=== PATIENT | male | born 2000 | race Caucasian/White ===

== ENCOUNTER 2021-09-27 10:31 | Outpatient (REF) | payer MEDICAID, SELFPAY ==
[2021-09-27 14:28] LABS: Abs Immature Grans 0.04 10^3/uL (0.0-0.06); Absolute Basophil Count 0.06 10^3/uL (0.0-0.2); Absolute Eosinophil Count 0.16 10^3/uL (0.0-0.7); Absolute Lymphocyte Count 2.63 10^3/uL (1.2-3.4); Absolute Monocyte Count 0.39 10^3/uL (0.1-0.8); Absolute Neutrophil Count 5.21 10^3/uL (1.2-6.7); Basophils % 0.7; Eosinophils % 1.9; HCT 39.1 % (40.0-50.0); HGB 13.2 g/dL (13.5-17.5); Immature Grans % 0.5; MCH 29.1 pg (27.0-33.0); MCHC 33.8 % (32.0-36.0); MCV 86 fL (80-95); MPV 9.9 fL (8.0-11.0); Monocytes % 4.6; Neutrophils % 61.3; Platelet Count 406 10^3/uL (130-400); RBC 4.54 10^6/uL (4.36-5.78); RDW 11.9 % (11.8-14.1); RDW-SD 37.5 fL; WBC 8.49 10^3/uL (4.4-10.8)
[2021-09-27 14:53] LABS: ALT 24 U/L (16-63); AST 14 U/L (15-37); Albumin 3.7 g/dL (3.4-5.0); Alkaline Phosphatase 80 U/L (46-116); Anion Gap 12.5 mmol/L (3-11); BUN 11 mg/dL (7-18); Bilirubin, Total 0.2 mg/dL (0.2-1.0); CO2 24.5 mmol/L (21.0-32.0); CREATININE 0.9 mg/dL (0.70-1.30); Calcium 8.7 mg/dL (8.5-10.1); Calculated LDL 165 mg/dL (<100); Chloride 101 mmol/L (98-107); Cholesterol 245 mg/dL (<200); Glucose 123 mg/dL (74-106); HDL Cholesterol 35 mg/dL (40-60); Potassium 3.7 mmol/L (3.5-5.1); Sodium 138 mmol/L (136-145); Total Protein 7.7 g/dL (6.4-8.2); Triglyceride 227 mg/dL (<150)
== END 2021-09-27 10:32 | disposition home or self-care (01) ==
LOC: NCHCN 10:31
PROVIDERS: Visit Provider Nurse Practitioner Family
DX: F64.0 Transsexualism (principal); E55.9 Vitamin D deficiency, unspecified; F41.8 Other specified anxiety disorders; F90.2 Attention-deficit hyperactivity disorder, combined type; Z00.00 Encounter for general adult medical examination without abnormal findings; E66.9 Obesity, unspecified; Z13.220 Encounter for screening for lipoid disorders
CPT/HCPCS: 80053; 80061; 82306; 84443; 85025

== ENCOUNTER 2021-12-18 15:49 | Outpatient (REF) | payer MEDICAID, SELFPAY ==
[2021-12-18 18:53] LABS: Abs Immature Grans 0.05 10^3/uL (0.0-0.06); Absolute Basophil Count 0.06 10^3/uL (0.0-0.2); Absolute Eosinophil Count 0.17 10^3/uL (0.0-0.7); Absolute Lymphocyte Count 2.48 10^3/uL (1.2-3.4); Absolute Monocyte Count 0.66 10^3/uL (0.1-0.8); Absolute Neutrophil Count 6.87 10^3/uL (1.2-6.7); Basophils % 0.6; Eosinophils % 1.7; HCT 49.5 % (40.0-50.0); HGB 15.9 g/dL (13.5-17.5); Immature Grans % 0.5; Lymphocytes % 24.1; MCH 26.5 pg (27.0-33.0); MCHC 32.1 % (32.0-36.0); MCV 83 fL (80-95); MPV 9.9 fL (8.0-11.0); Monocytes % 6.4; Neutrophils % 66.7; Platelet Count 432 10^3/uL (130-400); RDW 12.8 % (11.8-14.1); RDW-SD 38.4 fL; WBC 10.29 10^3/uL (4.4-10.8)
[2021-12-18 19:15] LABS: Anion Gap 4.9 mmol/L (3-11); BUN 9 mg/dL (7-18); CO2 26.1 mmol/L (21.0-32.0); CREATININE 0.9 mg/dL (0.70-1.30); Calcium 9.8 mg/dL (8.5-10.1); Chloride 102 mmol/L (98-107); Estimated GFR 124.61 (mL/min/1.73m2); Glucose 115 mg/dL (74-106); Potassium 3.9 mmol/L (3.5-5.1); Sodium 133 mmol/L (136-145)
[2021-12-26 14:02] LABS: Testosterone, Free 27.8 ng/dL (5.25-20.7); Testosterone, Total 575 ng/dL (240-950)
== END 2021-12-18 15:50 | disposition home or self-care (01) ==
LOC: NCHCN 15:49
PROVIDERS: Visit Provider Nurse Practitioner Family
DX: F64.0 Transsexualism (principal); F90.2 Attention-deficit hyperactivity disorder, combined type; Z76.0 Encounter for issue of repeat prescription
CPT/HCPCS: 80048; 84402; 84403; 85025

== ENCOUNTER 2022-05-01 03:10 | Outpatient (CLI) | payer MEDICAID, SELFPAY ==
[2022-05-01 12:14] LABS: HCT 49.9 % (40.0-50.0); HGB 16.6 g/dL (13.5-17.5)
[2022-05-01 13:08] LABS: ALT 43 U/L (16-63); AST 23 U/L (15-37); Alkaline Phosphatase 76 U/L (46-116); Bilirubin, Direct 0.1 mg/dL (0.0-0.2); Bilirubin, Total 0.5 mg/dL (0.2-1.0); Total Protein 8.3 g/dL (6.4-8.2)
[2022-05-01 13:31] LABS: Calculated LDL 191 mg/dL (<100); Cholesterol 280 mg/dL (<200); HDL Cholesterol 45 mg/dL (40-60); Triglyceride 221 mg/dL (<150)
[2022-05-06 13:27] LABS: Testosterone, Total 233 ng/dL (240-950)
== END 2022-05-01 03:11 | disposition home or self-care (01) ==
PROVIDERS: Referring Provider Internal Medicine Endocrinology, Diabetes & Metabolism; Visit Provider Internal Medicine Endocrinology, Diabetes & Metabolism
DX: Z78.9 Other specified health status (principal)
CPT/HCPCS: 36415; 80061; 80076; 84403; 85014; 85018

== ENCOUNTER 2022-08-05 02:34 | Outpatient (CLI) | payer MEDICAID, SELFPAY ==
--- NOTE | 2022-08-05 13:00 | NS.NUTBLAN_ITS ---
Gaston was referred for weight management education. Trans male 5'1 176 lbs BMI 33 Labs: elevated chol/LDL/triglycerides Meds: testosterone, vyvance Diet Recall: B: smoothie, L: omelete and fruit, D: salad, rice, hummus Exercise: none. 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 Gaston has been successful loosing about 25 lbs in last 3 months by following a lower calorie diet and tracking macronutrients on phone taniya. Currently following 1200 kcal, 150 g carb, 60 g protein, and 40 g fat. In past reports he often binged ate or restricted. Since starting vyvance, has stopped binging and using phone taniya to remind him to meet nutrient needs. Has not been restricting his meal intake. Gaston is motivated to lose another 50 lbs as is having a surgery in September this year. Goal for Gaston is to weigh 150 lbs at time of surgery. Encouraged Gaston to continue with current meal plan and to add in more exercise- goal is to walk 10 miles per week. No follow up scheduled at this time.
== END 2022-08-05 02:35 | disposition home or self-care (01) ==
PROVIDERS: PCP Nurse Practitioner Family; Visit Provider Dietitian, Registered
DX: E66.8 Other obesity (principal); Z68.33 Body mass index [BMI] 33.0-33.9, adult; Z71.3 Dietary counseling and surveillance
CPT/HCPCS: 97802

== ENCOUNTER 2023-02-14 12:46 | Outpatient (CLI) | payer MEDICAID, SELFPAY ==
[2023-02-14 11:55] LABS: HCT 49.5 % (36.0-46.0); HGB 16.5 g/dL (11.2-15.7)
[2023-02-14 12:38] LABS: Calculated LDL 155 mg/dL (<100); Cholesterol 259 mg/dL (<200); HDL Cholesterol 43 mg/dL (40-60); Triglyceride 309 mg/dL (<150)
[2023-02-14 12:47] LABS: Vitamin D 25 Total 16.9 ng/mL (30-100)
[2023-02-14 19:48] LABS: Estradiol 46 pg/mL (See Note)
[2023-02-20 02:24] LABS: Testosterone, Total 207 ng/dL (8-60)
== END 2023-02-14 12:47 | disposition home or self-care (01) ==
LOC: LBO 12:46
PROVIDERS: PCP Nurse Practitioner Family; Visit Provider Internal Medicine Endocrinology, Diabetes & Metabolism
DX: E78.1 Pure hyperglyceridemia (principal); E55.9 Vitamin D deficiency, unspecified; Z78.9 Other specified health status
CPT/HCPCS: 36415; 80061; 82306; 84403; 82670; 85014; 85018

== ENCOUNTER 2023-03-27 13:46 | Outpatient (REF) | payer MEDICAID, SELFPAY ==
--- NOTE | 2023-03-27 13:30 | PAPFT_PTH ---
PATIENT: Gaston Murillo LOC: [facility] U#:[id number] AGE/SX: 23/F ROOM: RE03/27/[address]: Shahida Kelly MD : 2000 BED: DIS: 03/27/2023 SPEC #: [id number] RECD: 03/27/23 18:07 STATUS: VARUN RETran #: [id number] BRENT: 03/27/23 13:[address]: Shahida Kelly DEPT: [facility] Cytology RECD BY: Mamie Albarran ENTERED: 03/27/23 18:07 SP TYPE: PAPFT MATTHEW DR: SHAILA FLETCHER NP Tissues: 1 - CX/ENDOCX FOR PAP SMEARS Procedures: PAP THIN PREP/UVM Screening Comments: [id number]
== END 2023-03-27 13:47 | disposition home or self-care (01) ==
LOC: LBN 13:46
PROVIDERS: PCP Nurse Practitioner Family; Visit Provider Obstetrics & Gynecology
DX: Z12.4 Encounter for screening for malignant neoplasm of cervix (principal)
CPT/HCPCS: 88142

== ENCOUNTER 2023-06-25 12:15 | Outpatient (REF) | payer MEDICAID, SELFPAY ==
[2023-06-25 15:19] LABS: HGB 17.6 g/dL (11.2-15.7); MCH 29.5 pg (27.0-33.0); MCHC 34.5 % (32.0-36.0); MCV 85 fL (80-95); Platelet Count 368 10^3/uL (130-400); RBC 5.97 10^6/uL (3.93-5.22); RDW 12.2 % (11.7-14.6); RDW-SD 38.2 fL; WBC 8.22 10^3/uL (4.4-10.8)
[2023-06-25 16:21] LABS: Cholesterol 264 mg/dL (<200); HDL Cholesterol 38 mg/dL (40-60); Triglyceride 497 mg/dL (<150)
[2023-06-25 16:33] LABS: LDL CHOLESTEROL 166 mg/dL (<100)
[2023-07-01 16:53] LABS: Testosterone, Total 672 ng/dL (8-60)
== END 2023-06-25 12:16 | disposition home or self-care (01) ==
LOC: NCHCN 12:15
PROVIDERS: PCP Nurse Practitioner Family; Referring Provider Nurse Practitioner Family; Visit Provider Nurse Practitioner Family
DX: E78.5 Hyperlipidemia, unspecified (principal); R53.83 Other fatigue; E55.9 Vitamin D deficiency, unspecified; F64.0 Transsexualism
CPT/HCPCS: 80061; 82306; 83721; 84403; 85027; 84443

== ENCOUNTER 2023-09-03 19:40 | Emergency (ER) | payer MEDICAID, SELFPAY ==
--- NOTE | 2023-09-03 19:30 | RT.EKG_ITS ---
APPROVED REPORT Exam: Resting ECG Reason for Exam: SOB Patient Location: E HR:99 bpm ECG Measurements Heart Rate 99 AXIS NE 154 P 73 QRSd 95 QRS 119 QT 338 T 61 QTc 435 Conclusion Sinus rhythm...normal P axis, V-rate 60- 99 Right axis deviation...QRS axis (111,269)
[2023-09-03 19:43] VITALS: BP 138/74; PULSE 90; RESP 18; TEMP 36.3; O2SAT 100
--- NOTE | 2023-09-03 19:57 | W.ED.GENAD ---
Discharge Plan Disposition Patient Disposition: Home Condition: Stable Discharge Details Clinical Impression: Anxiety, Dyspnea, Chest tightness Primary Care Provider: SHAILA FLETCHER ED Provider: Hanh Rowland Home Meds and New Rx's Prescriptions: Continued testosterone 1 % (25 mg/2.5gram) gel in packet 1 packet transdermal DAILY lisdexamfetamine [Vyvanse] 40 mg capsule 30 mg PO DAILY cholecalciferol (vitamin D3) 25 mcg (1,000 unit) capsule 25 mcg PO DAILY famotidine 40 mg tablet 40 mg PO DAILY Patient Comments: TAKE ONE TABLET BY MOUTH EVERY DAY Discharge Instructions Instructions: Dyspnea (ED), Anxiety (ED) Additional Instructions: No evidence for blood clot in your lungs, or pneumonia or heart attack on your labs today. I do suspect this is a combination of anxiety and component of acid reflux. Follow up with primary care provider in 3-5 days. Return to ED sooner if any worsening or concerns. Please take an [id number] antacid. Referrals: SHAILA FLETCHER, [employer]IV[employer]IES PROFESSOR [Primary Care Provider] - 3 days HPI General Mode of arrival: ambulatory. Date/Time Provider Initiated Documentation: 09/03/23 19:55. Limitations to Documentation: no limitations. Information obtained by: patient, RN notes reviewed and old records reviewed. HPI Narrative: 23-year-old female transitioning to male presents to the ER with chest tightness and shortness of breath that has been ongoing for the last 9 months worse since April. Reports that he was seen at urgent care and was referred here for further workup to rule out PE. Patient reports having history of GERD hyperlipidemia depression migraines and anemia. Related Data Home Medications Medication Instructions Recorded Confirmed cholecalciferol (vitamin D3) 25 25 mcg PO DAILY 03/27/23 09/03/23 mcg (1,000 unit) capsule lisdexamfetamine 40 mg capsule 30 mg PO DAILY 03/27/23 09/03/23 (Vyvanse) testosterone 1 % (25 mg/2.5 gram) 1 packet transdermal DAILY 03/27/23 09/03/23 transdermal gel packet famotidine 40 mg tablet 40 mg PO DAILY 09/03/23 09/03/23 Allergies Allergy/AdvReac Type Severity Reaction Status Date / Time No Known Allergies Allergy Verified 09/03/23 19:48 General Stated Complaint: SOB SOFIA: 3 Review of Systems All systems reviewed & are unremarkable except as noted in HPI and below Cardiovascular Cardiovascular: Reports chest pain, Reports lightheadedness, Reports dyspnea and Reports dyspnea on exertion Respiratory Respiratory: Reports dyspnea and Reports dyspnea on exertion Gastrointestinal Gastrointestinal: Reports dyspepsia, Reports heartburn, Denies diarrhea, Reports nausea and Denies vomiting Exam Narrative Exam Narrative: Constitutional: Alert and oriented x3. Appears stated age. Normal body habitus. Head: Normocephalic, no trauma. Eyes: Pupils PERRL, Red reflex noted, EOM's intact. Eyelids symmetrical without lesions, discharge, or swelling. ENT: Bilateral TM's WNL, External ear normal to inspection, no mastoid TTP, swelling, or erythema, Nasal turbinates WNL, no nasal discharge. Normal dentition, Posterior pharynx WNL, no exudate. Chest: RRR, Normal S1, S2, distal pulses intact. Resp: Lungs clear to auscultation bilaterally, no wheezes, rales, or rhonchi. Abdomen: Soft, non-distended, Normoactive bowel sounds all 4 quads. Musculoskeletal: Normal gait, Moves all 4 extremities without difficulty. Skin: No suspicious rashes or lesions. Capillary refill less than 2 sec. Neurologic: Cranial nerves II-XII intact. Alert and oriented x 3. Motor: No deficits noted. Sensory: Intact bilaterally all 4 extremities. Hematologic/Lymphatic: No ecchymosis, no lymphadenopathy. Course Vital Signs Vital signs: Vital Signs Temperature 36.3 C L 09/03/23 19:43 Pulse 90 09/03/23 19:43 Respiratory Rate 18 09/03/23 19:43 Blood Pressure 138/74 09/03/23 19:43 Pulse Oximetry 100 09/03/23 19:43 Temperature 36.3 C L 09/03/23 19:43 Temperature Source Temporal Artery Scan 09/03/23 19:43 Pulse 90 09/03/23 19:43 Respiratory Rate 18 09/03/23 19:43 Respiratory Effort Normal 09/03/23 19:47 Blood Pressure 138/74 09/03/23 19:43 Pulse Oximetry 100 09/03/23 19:43 Oxygen Delivery Method Room Air 09/03/23 19:43 Oxygen Flow Rate 0 09/03/23 19:43 Pain Level 0 09/03/23 19:43 Medical Decision Making 23-year-old female transitioning to male presents to the ER with chest tightness and shortness of breath that has been ongoing for the last 9 months worse since April. Reports that he was seen at urgent care and was referred here for further workup to rule out PE. Patient reports having history of GERD hyperlipidemia depression migraines and anemia. Workup ordered including CBC CMP D-dimer chest x-ray serial troponins. EKG was reviewed by Dr. Mcdermott ER attending, no old EKG available for review. Chest x-ray shows no acute thoracic process. CBC shows no leukocytosis hemoglobin 16.9 hematocrit 40.8, sodium 141 potassium 3.3 initial troponin less than 50. D-dimer within normal limits 139. At this time no evidence for PE due to negative D-dimer CT imaging not needed at this time. I do suspect a component of anxiety with his symptoms he also reports that symptoms have been ongoing for approximately 9 months this also may be attributed to the testosterone cream. Also describes history of GERD. Will give GI cocktail 0.5 of Ativan and discharged home. This text was generated using [employer]umuation system, please disregard any oddities of phrase or misspellings. Discussed results and labs with patient who verbalized understanding. Imaging Data Radiologic Study: Imaging: X-Ray Radiologist's impression: Age: 23 years old Clinical indication: Shortness of breath and other: Chest tightness TECHNIQUE: Imaging protocol: Radiologic exam of the chest. Views: 2 views. COMPARISON: No relevant prior studies available. FINDINGS: Lungs: Normal pulmonary expansion. Pulmonary vasculature grossly normal. No gross pulmonary infiltrates or edema pattern. Pleural spaces: No pleural effusion. No pneumothorax. Heart/Mediastinum: Heart size normal. No tracheal/mediastinal shift. Bones/joints: No acute osseous abnormalities are identified. IMPRESSION: No acute thoracic process. Thank you for allowing us to participate in the care of your patient. Dictated and Authenticated by: Khoi Holman MD Lab Data Lab results reviewed: Yes I reviewed the patient's lab results. Labs: Laboratory Tests Range/Units 09/03/23 20:06 WBC (4.4-10.8) 10^3/uL 10.67 RBC (3.93-5.22) 10^6/uL 5.71 H Hgb (11.2-15.7) g/dL 16.9 H Hct (36.0-46.0) % 48.8 H MCV (80-95) fL 86 MCH (27.0-33.0) pg 29.6 MCHC (32.0-36.0) % 34.6 RDW (11.7-14.6) % 11.9 Plt Count (130-400) 10^3/uL 366 MPV (8.0-11.0) fL 9.2 Immature Gran % % 0.5 Neutrophils % % 61.3 Lymphocytes % % 30.7 Monocytes % % 5.3 Eosinophils % % 1.6 Basophils % % 0.6 Nucleated RBC % (0.0-0.3) % 0.0 Absolute Neutrophils (1.2-6.7) 10^3/uL 6.54 Absolute Lymphocytes (1.2-3.4) 10^3/uL 3.28 Absolute Monocytes (0.1-0.8) 10^3/uL 0.57 Absolute Eosinophils (0.0-0.7) 10^3/uL 0.17 Absolute Basophils (0.0-0.2) 10^3/uL 0.06 D-Dimer (<500) ng/mlFEU 139 Sodium (136-145) mmol/L 141 Potassium (3.5-5.1) mmol/L 3.3 L Chloride (98-107) mmol/L 104 Carbon Dioxide (21.0-32.0) mmol/L 28.2 Anion Gap (3-11) mmol/L 8.8 BUN (7-18) mg/dL 10 Creatinine (0.55-1.02) mg/dL 0.8 Est GFR (CKD-EPI 2020) (mL/min/1.73m2) 106.11 Glucose (74-106) mg/dL 101 Calcium (8.5-10.1) mg/dL 9.0 Magnesium (1.8-2.4) mg/dL 2.0 Total Bilirubin (0.2-1.0) mg/dL 0.3 AST (15-37) U/L 18 ALT (14-59) U/L 40 Alkaline Phosphatase (46-116) U/L 76 Troponin I (< or =60) ng/L < 50 Total Protein (6.4-8.2) g/dL 8.2 Albumin (3.4-5.0) g/dL 4.2 Quality:[facility] Health Related Social Needs: No Data to Display PFSH All Active Problems (Updated 09/03/23 @ 21:33 by Hanh Rowland NP) Chest tightness (Acute) Dyspnea (Acute) Anxiety (Chronic) Medical History Hyperlipidemia Depression Migraine Anemia Surgical History H/O breast surgery Family History Other Breast cancer Diabetes Heart disease Stroke Social History Smoking/Tobacco Use Status: Never Smoking risk assessment performed?: Yes Substance use type: does not use Do you feel safe at home: Yes Female Reproductive History Menstrual Age of Menarche: 12 History History 0 Para Hx # Term Pregnancies Multiple births Hx # Pregnancies Ectopic pregnancies AB induced Hx Number of Living Children AB spontaneous
[2023-09-03 20:15] LABS: Abs Immature Grans 0.05 10^3/uL (0.0-0.06); Absolute Basophil Count 0.06 10^3/uL (0.0-0.2); Absolute Eosinophil Count 0.17 10^3/uL (0.0-0.7); Absolute Lymphocyte Count 3.28 10^3/uL (1.2-3.4); Absolute Monocyte Count 0.57 10^3/uL (0.1-0.8); Absolute Neutrophil Count 6.54 10^3/uL (1.2-6.7); Basophils % 0.6 %; Eosinophils % 1.6 %; HCT 48.8 % (36.0-46.0); HGB 16.9 g/dL (11.2-15.7); Immature Grans % 0.5 %; Lymphocytes % 30.7 %; MCH 29.6 pg (27.0-33.0); MCHC 34.6 % (32.0-36.0); MCV 86 fL (80-95); MPV 9.2 fL (8.0-11.0); Monocytes % 5.3 %; Neutrophils % 61.3 %; Platelet Count 366 10^3/uL (130-400); RBC 5.71 10^6/uL (3.93-5.22); RDW 11.9 % (11.7-14.6); RDW-SD 36.7 fL; WBC 10.67 10^3/uL (4.4-10.8)
--- NOTE | 2023-09-03 20:15 | DI.RAD_ITS ---
Exam(s) XR CHEST 2V PA LATERAL EXAM: XR CHEST 2V PA LATERAL CLINICAL HISTORY: SOB, Chest Tightness. TECHNIQUE: 2D digital imaging was performed. COMPARISON: No exams were available for comparison FINDINGS: 2 views: Heart size is normal. The mediastinum is not widened. Lungs are clear. No infiltrates nor pleural effusions. IMPRESSION: No acute pulmonary findings. DATA REPOSITORY: RADIATION DOSE DELIVERED:
[2023-09-03] MEDS: Normal Saline 1,000 ML 1000 ML IV (20:31)
[2023-09-03] MEDS: Aspirin 81 MG CHEW 324 MG CH (20:31)
[2023-09-03 20:42] LABS: ALT 40 U/L (14-59); AST 18 U/L (15-37); Albumin 4.2 g/dL (3.4-5.0); Alkaline Phosphatase 76 U/L (46-116); Anion Gap 8.8 mmol/L (3-11); BUN 10 mg/dL (7-18); Bilirubin, Total 0.3 mg/dL (0.2-1.0); CO2 28.2 mmol/L (21.0-32.0); CREATININE 0.8 mg/dL (0.55-1.02); Chloride 104 mmol/L (98-107); Estimated GFR 106.11 (mL/min/1.73m2); Glucose 101 mg/dL (74-106); Potassium 3.3 mmol/L (3.5-5.1); Sodium 141 mmol/L (136-145); Total Protein 8.2 g/dL (6.4-8.2); Troponin I < 50 ng/L (< or =60)
[2023-09-03 21:11] VITALS: RESP 18
[2023-09-03 21:25] LABS: D-Dimer 139 ng/mlFEU (<500)
--- NOTE | 2023-09-03 21:26 | DI.VRAD_ITS ---
PROCEDURE INFORMATION: Exam: XR Chest Exam date and time: 09/03/2023 8:35 PM Age: 23 years old Clinical indication: Shortness of breath and other: Chest tightness TECHNIQUE: Imaging protocol: Radiologic exam of the chest. Views: 2 views. COMPARISON: No relevant prior studies available. FINDINGS: Lungs: Normal pulmonary expansion. Pulmonary vasculature grossly normal. No gross pulmonary infiltrates or edema pattern. Pleural spaces: No pleural effusion. No pneumothorax. Heart/Mediastinum: Heart size normal. No tracheal/mediastinal shift. Bones/joints: No acute osseous abnormalities are identified. IMPRESSION: No acute thoracic process. Dictated and Authenticated by: Khoi Holman MD. Ordering:CARL Schafer MD
[2023-09-03] MEDS: Normal Saline Flush 10 ML SYR IVP (21:33)
[2023-09-03] MEDS: LORazepam 0.5 MG TAB PO (21:46)
[2023-09-03] MEDS: Lidocaine 2% Viscous 15 ML CUP PO (21:46)
== END 2023-09-03 21:47 | disposition home or self-care (01) ==
PROVIDERS: Emergency Provider Registered Nurse Emergency; PCP Nurse Practitioner Family
DX: R06.09 Other forms of dyspnea (principal); R07.9 Chest pain, unspecified; F41.9 Anxiety disorder, unspecified; E78.5 Hyperlipidemia, unspecified
CPT/HCPCS: 80053; 93005; 99285; 71046; 83735; 84484; 85025; 85379; 93010; 99284

== ENCOUNTER 2024-10-13 22:19 | Outpatient (REF) | payer MEDICAID, SELFPAY ==
[2024-10-13 21:09] LABS: Abs Immature Grans 0.08 10^3/uL (0.0-0.06); Absolute Basophil Count 0.06 10^3/uL (0.0-0.2); Absolute Eosinophil Count 0.21 10^3/uL (0.0-0.7); Absolute Lymphocyte Count 2.88 10^3/uL (1.2-3.4); Absolute Monocyte Count 0.67 10^3/uL (0.1-0.8); Absolute Neutrophil Count 6.49 10^3/uL (1.2-6.7); Basophils % 0.6 %; HCT 47.6 % (36.0-46.0); HGB 16.2 g/dL (11.2-15.7); Immature Grans % 0.8 %; Lymphocytes % 27.7 %; MCH 28.7 pg (27.0-33.0); MCV 84 fL (80-95); MPV 9.7 fL (8.0-11.0); Monocytes % 6.4 %; Neutrophils % 62.5 %; Platelet Count 395 10^3/uL (130-400); RBC 5.64 10^6/uL (3.93-5.22); RDW 11.7 % (11.7-14.6); RDW-SD 35.5 fL; WBC 10.39 10^3/uL (4.4-10.8)
[2024-10-13 21:27] LABS: ALT 40 U/L (14-59); AST 36 U/L (15-37); Albumin 3.9 g/dL (3.4-5.0); Alkaline Phosphatase 89 U/L (46-116); Anion Gap 12.6 mmol/L (3-11); BUN 11 mg/dL (7-18); Bilirubin, Total 0.3 mg/dL (0.2-1.0); CO2 23.4 mmol/L (21.0-32.0); Calculated LDL 166 mg/dL (<100); Chloride 102 mmol/L (98-107); Cholesterol 247 mg/dL (<200); Estimated GFR 80.68 (mL/min/1.73m2); Glucose 130 mg/dL (74-106); HDL Cholesterol 34 mg/dL (>or=50); Sodium 138 mmol/L (136-145); Total Protein 7.8 g/dL (6.4-8.2); Triglyceride 238 mg/dL (<150)
[2024-10-13 21:32] LABS: Hemoglobin A1C 5.2 % (<5.7)
== END 2024-10-13 22:20 | disposition home or self-care (01) ==
LOC: NCHCN 22:19
PROVIDERS: PCP Nurse Practitioner Family; Visit Provider Nurse Practitioner Family
DX: F64.0 Transsexualism (principal); Z79.899 Other long term (current) drug therapy
CPT/HCPCS: 80053; 80061; 84402; 84403; 83036; 85025